=== PATIENT | male | born 1960 | race Caucasian/White ===

== ENCOUNTER 2020-09-25 13:05 | Emergency (ER) | payer OTHER ==
[2020-09-25 13:39] VITALS: BP 142/86; PULSE 67; TEMP 98; BMI 28.4
[2020-09-25] MEDS ORDERED: IBUPROFEN 400 MG TABLET (FP) PO ONE ×2 (14:09→14:12)
== END 2020-09-25 14:16 | disposition home or self-care (01) ==
LOC: FER 13:05
DX: M25.512 Pain in left shoulder (principal)
CPT/HCPCS: 73030-TC-LT-FY; 99284-25

== ENCOUNTER 2021-08-07 16:26 | Emergency (ER) | payer OTHER ==
[2021-08-07 16:56] VITALS: BP 172/85; PULSE 73; TEMP 98.4; BMI 27.8
[2021-08-07] MEDS ORDERED: KETOROLAC TROMETHAMINE 60 MG/2 ML VIAL IM ONE (16:59)
[2021-08-07] MEDS ORDERED: KETOROLAC TROMETHAMINE 60 MG/2 ML VIAL ONE (17:01)
== END 2021-08-07 17:53 | disposition home or self-care (01) ==
LOC: FER 16:26
PROC: 3E0233Z Introduction of Anti-inflammatory into Muscle, Percutaneous Approach (ICD-10-PCS; principal; 2021-08-07)
DX: M25.561 Pain in right knee (principal); M79.642 Pain in left hand; M54.50 Low back pain, unspecified; V89.2XXA Person injured in unspecified motor-vehicle accident, traffic, initial encounter
CPT/HCPCS: 72100-TC-FY; 73130-TC-LT-FY; 73560-TC-RT-FY; 99285-25

== ENCOUNTER 2021-12-09 03:56 | Emergency (ER) | payer OTHER ==
[2021-12-09 04:00] VITALS: BP 166/100; PULSE 78; RESP 14; TEMP 97.5; BMI 27.8
[2021-12-09] MEDS ORDERED: KETOROLAC TROMETHAMINE 30 MG/1 ML VIAL IM ONE (04:09)
[2021-12-09] MEDS ORDERED: METHOCARBAMOL 750 MG TAB PO STA (04:10)
[2021-12-09] MEDS ORDERED: predniSONE 20 MG TABLET (UD) PO ONE (04:12)
[2021-12-09] MEDS ORDERED: predniSONE 20 MG TABLET (UD) ONE (04:15)
[2021-12-09] MEDS ORDERED: METHOCARBAMOL 500 MG TABLET ONE (04:16)
[2021-12-09] MEDS ORDERED: KETOROLAC TROMETHAMINE 30 MG/1 ML VIAL ONE (04:16)
== END 2021-12-09 04:27 | disposition home or self-care (01) ==
LOC: FER 03:56
PROC: 3E0233Z Introduction of Anti-inflammatory into Muscle, Percutaneous Approach (ICD-10-PCS; principal; 2021-12-09)
DX: M54.50 Low back pain, unspecified (principal)
CPT/HCPCS: 99284-25